=== PATIENT | female | born 1965 | race Hispanic/Latino ===

== ENCOUNTER → 2019-05-26 | Outpatient (CLI) | payer OTHER | END | disposition home or self-care (01) | LOC: RAH 14:06 | PROVIDERS: ATTEND Internal Medicine | DX: Z13.6 Encounter for screening for cardiovascular disorders (principal); I48.0 Paroxysmal atrial fibrillation; R00.2 Palpitations; I10 Essential (primary) hypertension; F41.9 Anxiety disorder, unspecified; Z79.01 Long term (current) use of anticoagulants | CPT/HCPCS: 75571 ==